=== PATIENT | male | born 1995 | race Caucasian/White ===

== ENCOUNTER 2017-10-30 15:52 | Emergency (ER) | payer OTHER ==
[2017-10-30 15:58] VITALS: BP 134/72; PULSE 70; RESP 16; TEMP 98.3; O2SAT 98
--- NOTE | 2017-10-30 17:11 | RADRPT ---
EXAM DATE/TIME: 10/30/2017 16:50 [place] COMPARISON: No previous studies available for comparison. INDICATIONS : Left shoulder pain after fall from ladder. MEDICAL HISTORY : None. SURGICAL HISTORY : None. ENCOUNTER: Initial ACUITY: 1 day PAIN SCORE: 6/10 LOCATION: Left shoulder. FINDINGS: Two view examination of the left shoulder demonstrates no evidence of fracture or dislocation. The g lenohumeral and acromioclavicular joints are maintained. Bony mineralization is normal. CONCLUSION: No acute fracture. Durga Moreno MD on October 30, 2017 at 17:09 Board Certified Radiologist. This report was verified electronically.
[2017-10-30] MEDS ORDERED: IBUP-232 PO (17:12)
--- NOTE | 2017-10-30 17:13 | PD ---
HPI Chief Complaint: Fall Time Seen by Provider: 17:10 Travel History International Travel<30 days: No Contact w/Intl Traveler<30days: No Traveled to known affect area: No History of Present Illness HPI 22-year-old male complains of pain in the left posterior back. He fell about 6 feet aboveground will on a ladder. He reports continuous pain in the left side there. No head trauma or loss conscious. Onset sudden. Timing constant. Severity moderate. PFSH Past Medical History Medical History: Denies Significant Hx Past Surgical History Surgical History: No Previous Surgery Social History Alcohol Use: No Tobacco Use: No Substance Use: No Allergies-Medications (Allergen,Severity, Reaction): Coded Allergies: No Known Allergies (Unverified , 10/30/17) Reported Meds & Prescriptions Reported Meds & Active Scripts Active Ibuprofen 600 Mg Tab 600 Mg PO Q8HR PRN 7 Days Review of Systems General / Constitutional: No: Fever Eyes: No: Photophobia HENT: No: Sore Throat Cardiovascular: No: Irregular Rhythm Respiratory: No: Wheezing Physical Exam Narrative GENERAL: Pleasant 22-year-old male mild distress secondary pain Vital Signs Date Time Temp Pulse Resp B/P (MAP) Pulse Ox O2 Delivery O2 Flow Rate FiO2 10/30/17 15:58 98.3 70 16 134/72 (92) 98 SKIN: Warm and dry. HEAD: Atraumatic. Normocephalic. EYES: Pupils equal and round. No scleral icterus. No injection or drainage. ENT: No nasal bleeding or discharge. Mucous membranes pink and moist. NECK: Trachea midline. No JVD. CARDIOVASCULAR: Regular rate and rhythm. RESPIRATORY: No accessory muscle use. Clear to auscultation. Breath sounds equal bilaterally. Minimal ecchymosis along the Midthoracic left back. GASTROINTESTINAL: Abdomen soft, non-tender, nondistended. Hepatic and splenic margins not palpable. MUSCULOSKELETAL: Extremities without clubbing, cyanosis, or edema. No obvious deformities. NEUROLOGICAL: Awake and alert. No obvious cranial nerve deficits. Motor grossly within normal limits. Five out of 5 muscle strength in the arms and legs. Normal speech. PSYCHIATRIC: Appropriate mood and affect; insight and judgment normal. Data Data Last Documented VS Vital Signs Date Time Temp Pulse Resp B/P (MAP) Pulse Ox O2 Delivery O2 Flow Rate FiO2 10/30/17 15:58 98.3 70 16 134/72 (92) 98 Orders Orders Shoulder, Limited(2vws) (10/30/17 ) Ed Discharge Order (10/30/17 17:13) Ketorolac Inj (Toradol Inj) (10/30/17 17:15) Morphine Inj (Morphine Inj) (10/30/17 17:15) MDM Medical Decision Making Medical Screen Exam Complete: Yes Emergency Medical Condition: Yes Medical Record Reviewed: Yes Differential Diagnosis Contusion, rib fracture, pneumothorax Narrative Course There is no pneumothorax. There is no flail chest. This is based on exam. The patient is ready for discharge. Work note provided. Last Impressions Shoulder X-Ray 10/30/17 0000 Signed Impressions: Service Date/Time: Wednesday, October 30, 2017 16:50 - CONCLUSION: No acute fracture. Durga Moreno MD Diagnosis Primary Impression: Contusion of rib on left side Qualified Codes: S20.212A - Contusion of left front wall of thorax, initial encounter Additional Impression: Fall from ladder Qualified Codes: W11.XXXA - Fall on and from ladder, initial encounter Referrals: Primary Care Physician as needed Med/Other Pt SpecificInfo: No Change to Meds Scripts Ibuprofen (Ibuprofen) 600 Mg Tab 600 MG PO Q8HR Y for PAIN for 7 Days, TAB 0 Refills Prov: Zachary Cerna MD 10/30/17 Disposition: 01 DISCHARGE HOME Condition: Stable Zachary Cerna MD October 30, 2017 17:13
[2017-10-30] MEDS ORDERED: KETOROLAC TROMETHAMINE 30 MG/ML (IVP) VIAL IV PUSH ONE (17:15)
[2017-10-30] MEDS ORDERED: MORPHINE SULFATE 8 MG/ML INJ IV PUSH ONE (17:15)
== END 2017-10-30 17:34 | disposition home or self-care (01) ==
LOC: NEPD 15:52
DX: S20.212A Contusion of left front wall of thorax, initial encounter (principal); W11.XXXA Fall on and from ladder, initial encounter
CPT/HCPCS: 73030; 99283